=== PATIENT | female | born 1965 | race American Indian/Alaskan Native ===

== ENCOUNTER 2018-04-26 08:44 | Outpatient (CLI) | payer BC ==
--- NOTE | 2018-04-26 10:37 | Mammography Report ---
BILATERAL DIGITAL SCREENING MAMMOGRAM with CAD and BILATERAL DIGITAL BREAST TOMOSYNTHESIS (DBT) : 04/26/18 09:00:00 CLINICAL: Routine screening. COMPARISON:06/16/16 and 06/08/15 FINDINGS: The breasts are heterogeneously dense, which may obscure small masses. Bilateral focal parenchymal asymmetries require additional imaging.A right outer focal asymmetry with indistinct margins on the 2-D CC view and image 60 of the CC mary series and image 31 of the MLO mary series. A left outer focal asymmetry with spiculation on both views of the 2-D mammogram and image 25 of the CC mary series and image 31 of the MLO mary series. No architectural distortion or suspicious calcifications. IMPRESSION: Bilateral focal asymmetries requiring additional workup. BI-RADS CATEGORY: 0 - - Needs Additional Imaging RECOMMENDATION: Recall for bilateral spot magnification views and bilateral breast ultrasound. COMMENT: Patient follow-up letters are generated by our [employer] application.
== END 2018-04-26 08:45 | disposition home or self-care (01) ==
LOC: SPVWC 08:44
PROVIDERS: ATTEND Obstetrics & Gynecology
DX: Z12.31 Encounter for screening mammogram for malignant neoplasm of breast (principal); E66.9 Obesity, unspecified; Z90.710 Acquired absence of both cervix and uterus
CPT/HCPCS: 77063; 77067

== ENCOUNTER 2018-08-16 15:50 | Outpatient (CLI) | payer OTHER ==
--- NOTE | 2018-08-16 16:36 | Ultrasound Report ---
Sonogram asymmetric density left breast: Findings: There is hypoechoic mass with irregular wall and posterior acoustic shadowing noted at 3:00 position 9 cm from nipple. The mass measures 0.8 x 0.92 cm in diameter. Benign left axillary lymph node is noted. Impression: Hypoechoic mass left breast suspicious for neoplasm. Recommend biopsy. BI-RADS CATEGORY: 4 = Suspicious ACR BI-RADS MAMMOGRAPHIC CODES: 0 = Needs additional imaging evaluation; 1 = Negative; 2 = Benign; 3 = Probably benign; 4 = Suspicious; 5 = Malignant; 6 = Known biopsy-proven malignancy COMMENT: 1. Dense breast tissue, i.e., adenosis, fibrocystic changes, etc., may obscure an underlying neoplasm. 2. Approximately 10% of cancers are not detected with mammography. 3. A negative mammography report should not delay biopsy if a clinically suspicious mass is present.
== END 2018-08-16 15:51 | disposition home or self-care (01) ==
LOC: SPVWC 15:50
PROVIDERS: ATTEND Obstetrics & Gynecology
DX: D36.0 Benign neoplasm of lymph nodes (principal); E66.9 Obesity, unspecified; Z90.710 Acquired absence of both cervix and uterus

== ENCOUNTER 2018-09-20 12:35 | Outpatient (CLI) | payer OTHER ==
--- NOTE | 2018-09-20 14:19 | Mammography Report ---
LEFT DIGITAL DIAGNOSTIC MAMMOGRAM: 09/20/18 12:35:00 CLINICAL: For clip placement immediately status post ultrasound biopsy. COMPARISON:04/26/18 FINDINGS: A biopsy clip is now identified in the outer breast at the site of the previously described mass. IMPRESSION: Concordant clip placement status post ultrasound biopsy. BI-RADS CATEGORY: 4--Suspicious Pathology pending.
--- NOTE | 2018-09-20 16:09 | Ultrasound Report ---
ULTRASOUND GUIDED NEEDLE CORE BIOPSY LEFT BREAST WITH CLIP PLACEMENT: 09/20/18 CLINICAL: Left breast mass at 3 o'clock 9 cm from the nipple. COMPARISON :08/16/18 ultrasound and 08/09/18 and 04/26/18 mammograms FINDINGS: The procedure was explained to the patient and informed consent was obtained. Ultrasound demonstrated previously described solid irregular hypoechoic mass at 3 o'clock 9 cm from the nipple. I marked the breast with a felt tip marker and a time out was called. The skin was prepped with Betadine and anesthetized with 1% lidocaine. Needle core biopsy was performed through a tiny dermatotomy using ultrasound guidance, 2% lidocaine with epinephrine for deep anesthesia and a 14-gauge Achieve biopsy device. 3 cores were obtained and placed in formalin. A clip was deployed within the mass. The patient tolerated the procedure well and there were no apparent complications. Hemostasis was achieved with minimal pressure and a sterile dressing was applied. A two view mammogram demonstrated concordant clip deployment. She left the department in good condition and was given instructions for wound care and followup. IMPRESSION: Uncomplicated ultrasound guided needle core biopsy with clip placement left breast.
== END 2018-09-20 12:36 | disposition home or self-care (01) ==
LOC: SPVWC 12:35
PROVIDERS: ATTEND Obstetrics & Gynecology
DX: C50.512 Malignant neoplasm of lower-outer quadrant of left female breast (principal); G47.33 Obstructive sleep apnea (adult) (pediatric); E66.9 Obesity, unspecified; Z90.710 Acquired absence of both cervix and uterus; Z98.890 Other specified postprocedural states
CPT/HCPCS: 88305; 88341; 88342; 88368

== ENCOUNTER 2018-10-17 12:35 | Outpatient (CLI) | payer OTHER ==
--- NOTE | 2018-10-17 14:48 | Mammography Report ---
LEFT DIGITAL DIAGNOSTIC MAMMOGRAM: 10/17/18 12:35:00 CLINICAL: Known left breast cancer. For clip placement immediately status post ultrasound guided needle biopsy at 2 sites. COMPARISON:09/20/18 FINDINGS: A biopsy clip is not identified to correlate with today's first biopsy site in the inferior far posterior breast . The mass is too far posterior to entirely imaged mammographically. However, a portion of the mass is included on both CC and lateral views. A biopsy clip is identified in the lower outer quadrant approximately 2 cm more medial and inferior to the known cancer. This correlates with today's second biopsy site and it also correlates with lesion 2 on the recent MRI. IMPRESSION: Unable to image the localizer clip placed at the first biopsy site because the lesion is too far posterior. However, I am confident that this lesion correlates with the mass identified by MRI at 5:30 o'clock to 6 o'clock approximately 15 cm from the nipple. Concordant clip placement at the second biopsy site which is 2 cm anterior and medial to the known cancer. BI-RADS CATEGORY: 6 -- Known Cancer Pathology pending.
--- NOTE | 2018-10-17 14:55 | Ultrasound Report ---
ULTRASOUND GUIDED NEEDLE CORE BIOPSY WITH CLIP PLACEMENT AT 2 SITES LEFT BREAST : 10/17/18 CLINICAL: Known left breast cancer at 3 o'clock 10 cm from the nipple and 2 additional suspicious lesions identified on MRI. COMPARISON :10/08/18 MRI FINDINGS: The procedure was explained to the patient and informed consent was obtained. Ultrasound demonstrated a solid heterogeneous hypoechoic shadowing mass at 5:30 o'clock approximately 15 cm from the nipple. It correlates with lesion 3 on the recent MRI.The skin was prepped with Betadine and anesthetized with 1% lidocaine. Ultrasound needle core biopsy was performed through a small dermatotomy using ultrasound guidance, 2% lidocaine with epinephrine for deep anesthesia and a 14-gauge Achieve biopsy device. Imaging demonstrated satisfactory sampling. 3 cores were obtained and placed in formalin. A localizer clip was deployed within the mass. Ultrasound also demonstrated an irregular shadowing mass at 3 o'clock approximately 7 cm from the nipple and this mass correlates with lesion 2 on the recent MRI. The skin was prepped with Betadine and anesthetized with 1% lidocaine. Ultrasound needle core biopsy was performed through a small dermatotomy using ultrasound guidance, 2% lidocaine with epinephrine for deep anesthesia and a 14-gauge Achieve biopsy device. 3 cores were obtained and placed in formalin. A localizer clip was deployed within the mass. Hemostasis was achieved at both sites with minimal pressure and sterile dressings were applied. The patient tolerated the procedure well and there were no apparent complications. A two-view mammogram demonstrated concordant clip placement at the second site. However, the mass at 5:30 o'clock is too far posterior to image mammographically and that clip was not imaged. She was discharged in good condition and was given instructions for wound care and followup. IMPRESSION: Uncomplicated ultrasound-guided needle core biopsy of masses at 3 o'clock 7 cm from the nipple and at 5:30 o'clock 15 cm from the nipple.
== END 2018-10-17 12:36 | disposition home or self-care (01) ==
LOC: SPVWC 12:35
PROVIDERS: ATTEND Surgery
DX: C50.512 Malignant neoplasm of lower-outer quadrant of left female breast (principal); G47.30 Sleep apnea, unspecified; Z90.710 Acquired absence of both cervix and uterus; Z98.890 Other specified postprocedural states; Z91.040 Latex allergy status; Z88.8 Allergy status to other drugs, medicaments and biological substances; Z79.899 Other long term (current) drug therapy
CPT/HCPCS: 88305; 88341; 88342

== ENCOUNTER 2019-04-30 08:09 | Outpatient (CLI) | payer OTHER ==
--- NOTE | 2019-04-30 09:10 | Mammography Report ---
DIGITAL SCREENING MAMMOGRAM WITH CAD, 04/30/2019 INDICATION: Routine screening mammography. History of left breast cancer and status post left mastect annette in 2019. TECHNIQUE: Digital right 2D mammography was obtained in the craniocaudal and mediolateral oblique pr ojections. This examination was interpreted with the benefit of Computer-Aided Detection analysis. COMPARISON: 08/09/2018 FINDINGS: Breast Density: The breast is heterogeneously dense, which may obscure small masses. There is no evidence of dominant mass, suspicious calcifications or architectural distortion in the r ight breast. A calcified benign fibroadenoma in the inner breast at 2-3 o'clock. IMPRESSION: No mammographic evidence of malignancy. Follow up recommendation: Routine yearly BI-RADS Category 2: Benign. A "normal" or negative report should not discourage follow up or biopsy of a clinically significant f inding. A written summary of these findings will be mailed to the patient. The patient will be entered into a mammography reporting system which will generate a reminder letter for the patient's next appointmen t at the appropriate interval. The [employer] recommends yearly mammograms starting at age 40 and continuing as l brad as a woman is in good health. Breast MRI is recommended for women with an approximate 20-25% or greater lifetime risk of breast cancer, including women with a strong family history of breast or ova joaquin cancer or who have been treated for Hodgkin's disease. Signer Name: Daniel Rhodes MD Signed: 04/30/2019 9:05 AM Workstation Name: [id number]
== END 2019-04-30 08:10 | disposition home or self-care (01) ==
LOC: SPVWC 08:09
PROVIDERS: ATTEND Surgery
DX: Z12.31 Encounter for screening mammogram for malignant neoplasm of breast (principal); I10 Essential (primary) hypertension; K21.9 Gastro-esophageal reflux disease without esophagitis; Z90.12 Acquired absence of left breast and nipple; Z85.3 Personal history of malignant neoplasm of breast